=== PATIENT | female | born 1950 | race African-American/Black ===

== ENCOUNTER 2018-08-15 14:19 | Emergency (ER) | payer OTHER ==
--- OUTSIDE RECORDS SUMMARY | 2018-08-15 14:21 | XMS REPORT ---
:1950 [facility] Address [address] [place] [address] Dr. House [address] [place] [id number] Care Team Providers Name Role Phone Unavailable Unavailable Unavailable Problems This patient has no known problems. Allergies, Adverse Reactions, Alerts This patient has no known allergies or adverse reactions. Medications This patient has no known medications.
--- NOTE | 2018-08-15 14:39 | RAD REPORT ---
EXAM DESCRIPTION: CT - Ct Stroke Brain Wo Cont - 08/15/2018 2:30 pm CLINICAL HISTORY: right sided numbness Headache, drowsiness, CVA COMPARISON: No comparisons TECHNIQUE: All CT scans are performed using dose optimization technique as appropriate and may inclu de automated exposure control or mA/KV adjustment according to patient size. FINDINGS: No intracranial hemorrhage, hydrocephalus or extra-axial fluid collection.Mild brain atrop hy.No areas of brain edema or evidence of midline shift. The paranasal sinuses and mastoids are clear. The calvarium is intact. IMPRESSION: No acute intracranial abnormality. The findings were discussed with Dr. Rucker in the ER on 08/15/2018 at 2:32 pm by telephone.
[2018-08-15 14:49] LABS: Absolute Monocytes 0.5 K/uL (0.1-1.3); Basophils % 0.6 % (0-1.3); Eosinophils % 1.8 % (0-4.4); Hematocrit 42.3 % (36.0-45.0); MPV 9.7 fL (7.6-11.3); Monocytes % 9.1 % (3.3-12.3); RBC Red Blood Cell Count 4.29 M/uL (3.86-4.86)
[2018-08-15 14:50] LABS: Protime INR 0.95
[2018-08-15 14:56] LABS: Potassium 4.2 mmol/L (3.5-5.1)
--- NOTE | 2018-08-15 15:08 | RAD REPORT ---
EXAM DESCRIPTION: RAD - Chest Single View - 08/15/2018 2:47 pm CLINICAL HISTORY: MD discretion Chest pain. COMPARISON: CHEST SINGLE VIEW dated 10/24/2008 FINDINGS: Portable technique limits examination quality. The lungs are grossly clear. The heart appears enlarged mildly. No displaced fractures. IMPRESSION: No acute intrathoracic process suspected.
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
[2018-08-15] MEDS ORDERED: ASPIRIN 81 MG CHEWABLE TABLET ONE (16:08)
[2018-08-15] MEDS ORDERED: FOLIC ACID 5 MG/ML VIAL ONE (16:10)
--- NOTE | 2018-08-16 07:23 | EKG ---
Test Date: 2018-08-15 Test Time: 14:44:42 Team Automobile Assembler: KIRA MEASUREMENT RESULTS: Intervals: Rate: 69 NJ: 226 QRSD: 108 QT: 420 QTc: 450 Forsan: P: 50 NJ: 226 QRS: -22 T: 51 INTERPRETIVE STATEMENTS: Sinus bradycardia with 1st degree AV block with frequent and consecutive premature atrial complexes Nonspecific T wave abnormality Abnormal ECG Compared to ECG 10/24/2008 20:36:04 First degree AV block now present T-wave abnormality still present Electronically Signed On 08-16-18 07:17:37 FIELD INVESTIGATOR by Adilson Albert
== END 2018-08-15 16:20 | disposition short-term general hospital (02) ==
LOC: ER 14:19
DX: R20.2 Paresthesia of skin (principal); I44.0 Atrioventricular block, first degree; I49.1 Atrial premature depolarization; R94.31 Abnormal electrocardiogram [ECG] [EKG]
CPT/HCPCS: 36415; 70450; 71045; 80048; 82962; 85025; 85610; 85730; 93005; 96374; 99285